=== PATIENT | male | born 1960 | race Caucasian/White ===

== ENCOUNTER 2017-08-17 09:52 | Day surgery (SDC) | payer OTHER ==
[2017-08-02 08:34] VITALS: Ht 180.3 cm; Wt 98.1 kg
--- NOTE | 2017-08-02 09:03 | PAT Medication Instructions ---
Service Date Aug 02, 2017. Current Home Medication List Simvastatin (Zocor), 20 MG PO Q2D Medication Instructions For Your Scheduled Surgery - Take the following medications as scheduled the night before surgery: Simvastatin (Zocor), 20 MG PO Q2D If you have any questions please call us at [phone] or [phone] or [phone]
--- NOTE | 2017-08-02 09:58 | DIAGNOSTIC IMAGING REPORT ---
CHEST 2 VIEWS ROUTINE CLINICAL HISTORY: 57 years-old Male presenting with preoperative assessment. TECHNIQUE: PA and lateral views of the chest were obtained. COMPARISON: None. FINDINGS: Atherosclerosis of the aortic arch. Cardiac silhouette normal in size. Prominent pericardial fat pad at the left apex. Lungs and pleural spaces clear. Osseous structures normal. Upper abdomen normal. IMPRESSION: 1. No acute cardiopulmonary disease. Electronically signed by: Jose Cardenas M.D. 08/02/2017 9:56 AM Dictated Date/Time: 08/02/2017 9:56 AM
[2017-08-02 10:15] LABS: BASO % 0.4 %; BASO ABS # 0.02 K/uL (0-0.2); EOS % 3.1 %; EOS ABS # 0.17 K/uL (0-0.5); HEMATOCRIT 45.5 % (42-52); HEMOGLOBIN 15.9 g/dL (14.0-18.0); IG# 0.02 K/uL (0.00-0.02); LYMPH % 34.2 %; LYMPH ABS # 1.89 K/uL (1.2-3.4); MEAN CELL VOLUME 86.3 fL (80-100); MEAN CORPUSCULAR HEMOGLOBIN 30.2 pg (25-34); MEAN CORPUSCULAR HGB CONC 34.9 g/dl (32-36); MEAN PLATELET VOLUME 9.7 fL (7.4-10.4); MONO ABS # 0.55 K/uL (0.11-0.59); NEUT % 51.9 %; NEUT ABS # 2.87 K/uL (1.4-6.5); PLATELET COUNT 204 K/uL (130-400); RED CELL DISTRIBUTION WIDTH CV 13.6 % (11.5-14.5); RED CELL DISTRIBUTION WIDTH SD 42.9 fL (36.4-46.3); WHITE BLOOD COUNT 5.52 K/uL (4.8-10.8)
[2017-08-02 10:22] LABS: CREATININE 1.13 mg/dl (0.60-1.40); POTASSIUM 4.2 mmol/L (3.5-5.1)
[~2017-08-17] VITALS: Ht 180.3 cm; Wt 98.1 kg
[~2017-08-17 09:52] MED LIST: CEFAZOLIN 2000MG IV PUSH 15 ML IV SCH; LACTATED RINGER'S 1000ML 1,000 ML IV SCH; SIMV20TA2 PO
[2017-08-17 10:12] VITALS: BP 149/85; PULSE 64; TEMP 36.4; O2SAT 97
[2017-08-17] MEDS ORDERED: LIDOCAINE HCL 2% 2 ML VIAL (20MG/ML) ONE (11:09)
[2017-08-17] MEDS ORDERED: PROPOFOL IV EMULSION 10 MG/ML 20 ML VIAL IV ONE (11:09)
[2017-08-17] MEDS ORDERED: ONDANSETRON INJ 2 MG/ML 2 ML VIAL ONE (11:09)
[2017-08-17] MEDS ORDERED: DEXAMETHASONE SOD INJ 4 MG/ML VIAL ONE (11:09)
[2017-08-17] MEDS ORDERED: FENTANYL CITRATE INJ 50 MCG/1 ML 2 ML VIAL ONE ×2 (11:10→13:48)
[2017-08-17] MEDS ORDERED: MIDAZOLAM HCL 1 MG/ML 2ML VIAL ONE (11:10)
--- NOTE | 2017-08-17 11:11 | History & Physical Bridge Note ---
H&P Re-Evaluation Bridge Note: I have examined the patient, reviewed the History & Physical and in the interval since the performance of the History & Physical I have noted the following changes of clinical significance: No changes noted
[2017-08-17] MEDS ORDERED: BUPIVACAINE 0.5 % 5 MG/1 ML MPF 30ML VIAL ONE (11:34)
[2017-08-17] MEDS ORDERED: BACITRACIN OINT 15 GM TUBE ONE (11:34)
[2017-08-17] MEDS ORDERED: PHEN-775 PO (11:36)
[2017-08-17] MEDS ORDERED: OXYC-57 PO (11:36)
[2017-08-17] MEDS ORDERED: CIPR-255 PO (11:36)
[2017-08-17] MEDS ORDERED: BACI500O11 TOP (11:38)
[2017-08-17] MEDS ORDERED: CEPH500C2 PO (11:38)
[2017-08-17] MEDS ORDERED: DOCU-94 PO (11:38)
[2017-08-17] MEDS ORDERED: FENTANYL CITRATE INJ 50 MCG/1 ML 2 ML VIAL IV PRN (13:15)
[2017-08-17] MEDS ORDERED: ONDANSETRON INJ 2 MG/ML 2 ML VIAL IV PRN (13:15)
[2017-08-17] MEDS ORDERED: ATROPINE SULFATE 0.1 MG/ML 5ML SYR IV PRN (13:15)
[2017-08-17] MEDS ORDERED: KETOROLAC TROMETHAMINE 30 MG/ML VIAL IV. PRN (13:15)
[2017-08-17] MEDS ORDERED: LABETALOL HCL IV 5 MG/ML 20ML IV PRN (13:15)
--- NOTE | 2017-08-17 14:04 | [facility] Operative Report ---
Operative Report Operative Date Aug 17, 2017. Pre-Operative Diagnosis Epididymal Mass Left Post-Operative Diagnosis Same as preop Procedure(s) Performed Left Spermatocelectomy Surgeon Dr. Sadie Fuller Furniture Mover Helper Surgeon(s) None Estimated Blood Loss 5 ml Findings Spermatocele removed intact, excellent hemostasis. Viable testis at the end of the case. Specimens A. Left Spermatocele Drains None Anesthesia Type General Complication(s) none Disposition yes Recovery Room / PACU Indications Pleasant 57-year-old male with a bothersome left-sided spermatocele here for surgical correction. Please see H&P for further details. Intravenous Ancef provided for antibody coverage and SCDs used for DVT prophylaxis. Description of Procedure Patient was properly identified and brought into the operative suite after identification for consent in the chart. General anesthesia with laryngeal mask was initiated and patient was prepped and draped in standard fashion for this procedure. Full timeout procedure was followed. Skin was anesthetized using plain local prior to incision. Incision was made along the midline median raphae and brought down to the level of the left testis which was delivered from the scrotum. Tunica vaginalis was sharply entered with minimal hydrocele fluid being present. This was everted at the end of the case and widely spatulated. Left-sided spermatocele was appreciated at the head of the epididymis was bluntly and sharply dissected free. Bovie cautery and 2-0 Vicryl ties were used as necessary for hemostasis and control of small vessels. Testis was noted to be viable at the end of the case. Cord block was performed prior to significant manipulation of the testis. After the spermatocele was dissected free it was sent for pathologic analysis. Excellent hemostasis and viability of the testis was appreciated after completion. Wound was irrigated and the testis was returned to the scrotum without twist or turns of the cores. Incision was closed in 2 layers using 2-0 Vicryl suture at the level of the dartos fascia and a 3-0 chromic running vertical mattress suture at the level of the skin. Bacitracin ointment was placed at the level of the skin incision followed by scrotal support plus fluffs. Anesthesia was reversed and patient was transferred to recovery room in stable condition. Follow-up care: Patient will be discharged home with a prescription for Keflex, Percocet and Colace as well as bacitracin for his incision. Scrotal support and fluffs 48 hours then as needed. Outpatient appointment is confirmed. Patient is instructed to contact our office should he note any fevers, chills, nausea, vomiting or other difficulties in the postoperative period. I attest to the content of the Intraoperative Record and any orders documented therein. Any exceptions are noted below.
[2017-08-17] MEDS ORDERED: KETOROLAC TROMETHAMINE 30 MG/ML VIAL ONE (14:05)
--- NOTE | 2017-08-17 14:16 | Discharge Instructions ---
Discharge Instructions Date of Service Aug 17, 2017. Admission Reason for Admission: Left Spermatocele Discharge Discharge Diagnosis / Problem: L spermatocoelectomy s/p spermatocoelectomy Discharge Goals Goal(s): Decrease discomfort, Diagnostic testing, Therapeutic intervention Activity Recommendations Activity Limitations: as noted below Lifting Limitations: no more than 25 pounds, gradually increase as tolerated ( over 5-7 days) Exercise/Sports Limitations: rest today, gradually increase as tolerated (over 5-7 days) May Resume Sexual Activity: after follow-up appointment Shower/Bathe: tomorrow (no tub bath x 2 weeks) Driving or Machine Use: resume 1 day after discharge . Instructions / Follow-Up Instructions / Follow-Up Scrotal support and fluffs x 48 hours then as needed. Ice packs on and off x 48 hours then as needed. Bacitracin ointment to incision 2-3 times a day until healed. Current Hospital Diet Patient's current hospital diet: Discharge Diet Recommended Diet: Regular Diet Procedures Procedures Performed: Left Spermatocelectomy Pending Studies Studies pending at discharge: yes List of pending studies: Pathology report Medical Emergencies . Who to Call and When: Medical Emergencies: If at any time you feel your situation is an emergency, please call 911 immediately. . Non-Emergent Contact Non-Emergency issues call your: Urologist Call Non-Emergent contact if: you have a fever, temperature is above 101, your pain is not controlled, your pain is worsening, your pain is unusual for you, your pain is concerning you, wound has increased drainage, wound has increased redness, wound has increased pain, you have any medication questions . . "Provider Documentation" section prepared by Jae Fuller. . [place] Drug Monitoring Program Search Results: patient reviewed within database, no issues identified
[2017-08-17] MEDS ORDERED: OXYCODONE/ACETAMINOPHEN 5-325 TAB PO PRN ×2 (14:30)
[2017-08-17 14:52] VITALS: BP 136/78; PULSE 60; TEMP 36.5; O2SAT 93
--- NOTE | 2017-08-17 14:57 | Anesthesiology Progress Note ---
Anesthesia Post Op Note Date & Time Aug 17, 2017 at 14:57 Vital Signs Pain Intensity: 0 Vital Signs Past 12 Hours Date Time Temp Pulse Resp B/P (MAP) Pulse Ox O2 Delivery O2 Flow Rate FiO2 08/17/17 14:45 36.0 60 15 136/86 99 Room Air 08/17/17 14:35 70 17 132/86 99 Room Air 08/17/17 14:25 66 18 135/84 100 Oxymask 10 08/17/17 14:15 36.0 75 20 130/80 99 Oxymask 10 08/17/17 14:08 36.0 67 16 123/76 98 Oxymask 10 08/17/17 10:12 36.4 64 18 149/85 (106) 97 Room Air Notes Mental Status: alert / awake / arousable, participated in evaluation Pt Amnestic to Procedure: Yes Nausea / Vomiting: adequately controlled Pain: adequately controlled Airway Patency, RR, SpO2: stable & adequate BP & HR: stable & adequate Hydration State: stable & adequate Anesthetic Complications: no major complications apparent
[2017-08-17 15:30] VITALS: BP 135/79; PULSE 63; TEMP 36.2; O2SAT 95
== END 2017-08-17 15:48 | disposition home or self-care (01) ==
LOC: C.ACU 09:52
PROVIDERS: ATTEND Urology
DX: N50.9 Disorder of male genital organs, unspecified (principal); I86.1 Scrotal varices; E78.5 Hyperlipidemia, unspecified; E66.9 Obesity, unspecified